=== PATIENT | male | born 1970 | race Caucasian/White ===

== ENCOUNTER 2018-10-14 21:27 | Emergency (ER) | payer BC ==
[2018-10-15 00:29] LABS: ADD MAN DIFF? NO
[2018-10-15 00:41] LABS: WHITE BLOOD COUNT 6.9 10^3/ul (4.8-10.8)
[2018-10-15 00:41] LABS: BASOPHIL # 0.1 10^3/ul (0.0-0.1); EOSINOPHILS # 0.2 10^3/ul (0.0-0.5); EOSINOPHILS % 2.3 % (0.0-7.0); HEMATOCRIT 43.7 % (42.0-52.0); HEMOGLOBIN 15.6 g/dl (14.0-18.0); LYMPHOCYTES # 2.1 10^3/ul (0.8-2.9); LYMPHOCYTES % 30.9 % (15.0-51.0); MEAN CORPUSCULAR HEMOGLOBIN 32.9 pg (29.0-33.0); MEAN CORPUSCULAR HGB CONC 35.7 g/dl (32.0-37.0); MEAN CORPUSCULAR VOLUME 92.2 fl (82.0-101.0); MEAN PLATELET VOLUME 10.7 fl (7.4-10.4); MONOCYTE # 0.7 10^3/ul (0.3-0.9); MONOCYTES % 9.5 % (0.0-11.0); NEUTROPHIL # 3.9 10^3/ul (1.6-7.5); NEUTROPHILS % 55.7 % (39.0-77.0); PLATELET COUNT 127 10^3/UL (140-415); POSITIVE DIFF @See below; RED BLOOD COUNT 4.74 10^6/ul (4.70-6.10); RED CELL DISTRIBUTION WIDTH 11.6 % (11.5-14.5)
[2018-10-15 01:13] LABS: ALANINE AMINOTRANSFERASE 92 IU/L (13-69); ALBUMIN 4.5 g/dl (3.3-4.9); ALBUMIN/GLOBULIN RATIO 1.04; ALKALINE PHOSPHATASE 216 IU/L (42-121); ANION GAP 15 (5-13); ASPARTATE AMINO TRANSFERASE 137 IU/L (15-46); BILIRUBIN,INDIRECT 0.6 mg/dl (0-1.1); BILIRUBIN,TOTAL 0.6 mg/dl (0.2-1.3); BLOOD UREA NITROGEN 3 mg/dl (7-20); CARBON DIOXIDE 24 mmol/L (21-31); CHLORIDE 99 mmol/L (97-110); CREATININE 0.59 mg/dl (0.61-1.24); Estimated GFR > 60 mL/min (>60); GLUCOSE 346 mg/dl (70-220); POTASSIUM 3.6 mmol/L (3.5-5.1); SODIUM 138 mmol/L (135-144); TOTAL PROTEIN 8.8 g/dl (6.1-8.1)
[2018-10-15 01:25] LABS: B-TYPE NATRIURETIC PEPTIDE 30 PG/ML (0-125); TROPONIN-I < 0.012 ng/ml (0.000-0.120)
[2018-10-15] MEDS ORDERED: POTASSIUM CHLORIDE 20 MEQ in SOD CHLORIDE 0.9% 1,000 ML IV (02:54)
[2018-10-15] MEDS ORDERED: DEXTROSE 50% 50 ML SYRINGE IV ×2 (03:00)
[2018-10-15] MEDS ORDERED: NITROGLYCERIN (SL) 0.4 MG TAB SL (03:00)
[2018-10-15] MEDS ORDERED: NACL 0.9% 3 ML SYG IV (03:00)
[2018-10-15] MEDS ORDERED: morphine 2 MG INJ IV (03:00)
[2018-10-15] MEDS ORDERED: GLUCAGON 1 MG INJ IM (03:00)
[2018-10-15] MEDS ORDERED: DOCUSATE SODIUM 100 MG CAP PO (03:00)
[2018-10-15] MEDS ORDERED: GLUCOSE GEL 15 GRAM TUBE BUCCAL (03:00)
[2018-10-15] MEDS ORDERED: ONDANSETRON 4 MG TAB PO (03:00)
[2018-10-15] MEDS ORDERED: GLUCOSE GEL 15 GRAM TUBE PO ×2 (03:00)
[2018-10-15] MEDS ORDERED: ONDANSETRON 4 MG INJ IV (03:00)
[2018-10-15] MEDS ORDERED: ACETAMINOPHEN 325 MG TAB PO ×2 (03:00)
[2018-10-15] MEDS: NS + KCL 20 MEQ 1,000 ML IV (04:25)
[2018-10-15] MEDS: INSULIN GLARGINE [LANTus] (100 UNITS/ML) SYG SC (04:39)
[2018-10-15] MEDS: INSULIN REGULAR, HUMAN 100 UNIT/1 ML 3ML VIAL IV (05:48)
[2018-10-15 06:12] LABS: ANION GAP 13 (5-13); BLOOD UREA NITROGEN 3 mg/dl (7-20); CALCIUM 8.5 mg/dl (8.4-10.2); CARBON DIOXIDE 24 mmol/L (21-31); CHLORIDE 102 mmol/L (97-110); CHOL/HDL RATIO 3.9 RATIO; CHOLESTEROL 207 mg/dl (100-200); CREATININE 0.56 mg/dl (0.61-1.24); Estimated GFR > 60 mL/min (>60); GLUCOSE 292 mg/dl (70-220); HDL CHOLESTEROL 53 mg/dl (28-71); LDL CHOLESTEROL,CALCULATED 103 mg/dl; POTASSIUM 3.6 mmol/L (3.5-5.1); SODIUM 139 mmol/L (135-144); TRIGLYCERIDES 257 mg/dl (0-149)
[2018-10-15 06:19] LABS: HEMOGLOBIN A1C 10.7 % (0-5.9)
[2018-10-15 06:21] LABS: TROPONIN-I < 0.012 ng/ml (0.000-0.120)
[2018-10-15] MEDS: ACCU-CHEK XX (06:56)
[2018-10-15] MEDS ORDERED: metFORMIN 500 MG TAB PO (08:00)
[2018-10-15] MEDS: ASPIRIN 81 MG TAB PO (08:36)
[2018-10-15] MEDS: ENOXAPARIN 40 MG/0.4 ML SYG SC (08:37)
[2018-10-15] MEDS: LOSARTAN 25 MG TAB PO (08:37)
[2018-10-15 11:14] LABS: TROPONIN-I < 0.012 ng/ml (0.000-0.120)
[2018-10-15] MEDS ORDERED: PANTOPRAZOLE (EC) 40 MG TAB PO (21:00)
[2018-10-15] MEDS ORDERED: ATORVASTATIN 40 MG TAB PO (21:00)
== END 2018-10-15 15:20 | disposition home or self-care (01) ==
LOC: E/R 21:27
DX: R07.9 Chest pain, unspecified (principal); I10 Essential (primary) hypertension; Z79.82 Long term (current) use of aspirin; Z87.891 Personal history of nicotine dependence
CPT/HCPCS: 36415; 71045; 80048; 80053; 80061; 82962; 83036; 83880; 84443; 84484; 85025; 93005; 93306; 96372; 96374; 99285-25